=== PATIENT | male | born 1965 | race Caucasian/White ===

== ENCOUNTER 2016-03-10 07:02 | Emergency (ER) | payer BC, OTHER ==
[2016-03-10] MEDS ORDERED: IBUPROFEN 600 MG TABLET (FP) PO ONE (07:12)
[2016-03-10 07:14] VITALS: BP 135/84; PULSE 91; TEMP 97.4; BMI 51.7
--- NOTE | 2016-03-10 07:17 | PDOC ---
History of Present Illness - General Chief Complaint: Pain Stated Complaint: LEFT WRIST PAIN Time Seen by Provider: 03/10/16 07:10 History Source: Patient Exam Limitations: No Limitations - History of Present Illness Initial Comments: 03/10/16 07:15 50-year-old male with past medical history diabetes, obesity, left hand dominant presents to the emergency department for left medial wrist pain. The patient was playing with his 50 lb dog. Yesterday, noted throughout the day that he had developed gradual left medial wrist pain worse with palpation and movement. Denies other types of trauma. Denies numbness or weakness. Has not taken any medications. Came into the ER for further evaluation. Patient is wearing his own splint. Past History - Past Medical History Allergies/Adverse Reactions: Allergies Allergy/AdvReac Type Severity Reaction Status Date / Time No Known Allergies Allergy Verified 03/10/16 07:03 Home Medications: Ambulatory Orders Aspirin 81 mg PO DAILY 07/25/14 Cholecalciferol (Vitamin D3) [Vitamin D-3] 2,000 unit PO DAILY 10/18/14 Cyanocobalamin [Vitamin B12 -] 1,000 mcg PO DAILY 10/18/14 Duloxetine HCl [Cymbalta] 60 mg PO DAILY 03/10/16 Metformin HCl 03/10/16 Anemia: No Asthma: No Cancer: No Cardiac Disorders: No CVA: No COPD: No CHF: No Dementia: No Diabetes: Yes GI Disorders: No Disorders: No HTN: Yes Hypercholesterolemia: Yes Liver Disease: No Seizures: No Thyroid Disease: No - Surgical History Abdominal Surgery: Yes (LAPROSCOPIC GASTRIC BANDING-2009) Appendectomy: No Cardiac Surgery: No Cholecystectomy: No Lung Surgery: No Neurologic Surgery: No Orthopedic Surgery: No - Psycho/Social/Smoking Cessation Hx Smoking History: Current every day smoker Have you smoked in the past 12 months: Yes Number of Cigarettes Smoked Daily: 15 Hx Alcohol Use: Yes Drug/Substance Use Hx: No Substance Use Type: Alcohol Hx Substance Use Treatment: No Review of Systems - Review of Systems Able to Perform ROS?: Yes Comments:: 03/10/16 07:16 GENERAL/CONSTITUTIONAL: No fever, weakness. HEAD, EYES, EARS, NOSE AND THROAT: No change in vision. No ear pain or discharge. No sore throat. CARDIOVASCULAR: No chest pain or shortness of breath. RESPIRATORY: No cough, wheezing, or hemoptysis. GASTROINTESTINAL: No abdominal pain, nausea, vomiting, diarrhea, or decreased PO intolerance. GENITOURINARY: No dysuria, frequency, or change in urination. MUSCULOSKELETAL: +Left wrist pain. No neck or back pain. SKIN: No rash NEUROLOGIC: No headache, vertigo, loss of consciousness, or change in strength/ sensation. ENDOCRINE: No increased thirst. No abnormal weight change. HEMATOLOGIC/LYMPHATIC: No anemia, easy bleeding, or history of blood clots. ALLERGIC/IMMUNOLOGIC: No hives or skin allergy. *Physical Exam - Physical Exam Comments: 03/10/16 07:16 GENERAL: Awake, alert, and fully oriented, in no acute distress. HEAD: No signs of trauma EYES: PERRLA, EOMI, sclera anicteric, conjunctiva clear ENT: Auricles normal inspection, hearing grossly normal, nares patent, oropharynx clear without exudates. NECK: Normal ROM, supple, no lymphadenopathy, JVD, or masses LUNGS: Breath sounds equal, clear to auscultation bilaterally. No wheezes, and no crackles HEART: Regular rate and rhythm, normal S1 and S2, no murmurs, rubs or gallops ABDOMEN: Soft, nontender, normoactive bowel sounds. No guarding, no rebound. No masses EXTREMITIES: Normal range of motion, no edema. No clubbing or cyanosis. No cords, erythema, or tenderness LUE: 2+ radial pulse. Sensation and movement intact in the medial/radial/ulnar nerve distribution Full strength. Point tenderness along the left medial wrist. No stepoffs appreciated. NEUROLOGICAL: Cranial nerves II through XII grossly intact. Normal speech, normal gait SKIN: Warm, Dry, normal turgor, no rashes or lesions noted. ED Treatment Course - RADIOLOGY Radiology Studies Ordered: Category Date Time Status WRIST-LEFT [RAD] Stat Radiology 03/10/16 07:10 Ordered Medical Decision Making - Medical Decision Making 03/10/16 07:17 Likely wrist strain in setting of playing with his pet dog. Will obtain xray to r/o fractures. NSAIDs and reassess. 03/10/16 08:25 Xray reviewed, as per imaging communication center coordinator. Suspected calcific density associated with the radial margin intercarpal row, possibly ligamentous in origin. RICE therapy. Follow up with orthopedics. I discussed the physical exam findings, ancillary test results and final diagnoses with the patient. I answered all of the patient's questions. The patient was satisfied with the care received and felt comfortable with the discharge plan and treatment plan. The patient will call their primary care physician within 24 hours to arrange follow-up and will return to the Emergency Department with any new, persistant or worsening symptoms. *DC/Admit/Observation/Transfer Diagnosis at time of Disposition: Left wrist sprain Qualifiers: Encounter type: initial encounter Qualified Code(s): S63.502A - Unspecified sprain of left wrist, initial encounter - Discharge Dispostion Disposition: HOME Condition at time of disposition: Stable Admit: No - Referrals Referrals: Henry Bojorquez MD [Staff Physician] - - Patient Instructions Printed Discharge Instructions: DI for Wrist Strain Additional Instructions: Take 600 mg ibuprofen (motrin) every 6 hours as needed for pain. Elevate the hand as much as you can. Wear the brace as needed. If the symptoms are persistent and greater than 1 week, please make an appointment with an orthopedist.
== END 2016-03-10 08:32 | disposition home or self-care (01) ==
LOC: FER 07:02
DX: S63.502A Unspecified sprain of left wrist, initial encounter (principal); X58.XXXA Exposure to other specified factors, initial encounter; Y93.89 Activity, other specified; Y92.9 Unspecified place or not applicable; E11.9 Type 2 diabetes mellitus without complications; E66.9 Obesity, unspecified; Z68.43 Body mass index [BMI] 50.0-59.9, adult; I10 Essential (primary) hypertension; Z98.84 Bariatric surgery status; E78.00 Pure hypercholesterolemia, unspecified; F17.210 Nicotine dependence, cigarettes, uncomplicated
CPT/HCPCS: 73110-TC-LT; 99282-25

== ENCOUNTER 2018-08-14 19:20 | Emergency (ER) | payer BC ==
[2018-08-14 19:28] VITALS: BP 123/77; PULSE 90; TEMP 98.4; BMI 52.9
[2018-08-14] MEDS ORDERED: LIDO 2%/EPI 1:200000 PRESRVFRE (20 ML SDVIAL) ONE (20:38)
--- NOTE | 2018-08-15 02:06 | PDOC ---
Documentation entered by Daniele De Jesus SCRIBE, acting as scribe for Gely Germain MD. Gely Germain MD: This documentation has been prepared by the Neal mcfadden Daniel, SCRIBE, under my direction and personally reviewed by me in its entirety. I confirm that the documentation accurately reflects all work, treatment, procedures, and medical decision making performed by me. History of Present Illness - General Chief Complaint: Injury Stated Complaint: RT ANKLE WOUND Time Seen by Provider: 08/14/18 19:22 History Source: Patient Exam Limitations: No Limitations - History of Present Illness Initial Comments: 08/14/18 20:37 The patient is a 52 year old male with a past medical history of diabetes, diabetic neuropathy, and varicose veins here today for evaluation of a laceration to the right ankle. The patient reports that he was trimming his hedges when a stick cut his the anterior aspect of his right ankle. The patient noted copious, pulsatile bleeding from the area and reported to the ER. No previous history of bleeding from varicose veins Patient denies headache, lightheadedness. Denies fever, chills. Denies chest pain, shortness of breath. Denies nausea, vomiting, diarrhea, abdominal pain. Allergies: NKA Past History - Past Medical History Allergies/Adverse Reactions: Allergies Allergy/AdvReac Type Severity Reaction Status Date / Time No Known Allergies Allergy Verified 03/10/16 07:03 Home Medications: Ambulatory Orders Aspirin 81 mg PO DAILY 07/25/14 Cholecalciferol (Vitamin D3) [Vitamin D-3] 2,000 unit PO DAILY 10/18/14 Cyanocobalamin [Vitamin B12 -] 1,000 mcg PO DAILY 10/18/14 Anemia: No Asthma: No Cancer: No Cardiac Disorders: No CVA: No COPD: No CHF: No Dementia: No Diabetes: Yes GI Disorders: No Disorders: No HTN: Yes Hypercholesterolemia: Yes Liver Disease: No Psychiatric Problems: Yes Seizures: No Thyroid Disease: No Other medical history: PERIPHERAL NEUROPATHY, MORBIDLY OBESE - Surgical History Abdominal Surgery: Yes (LAPROSCOPIC GASTRIC BANDING-2009) Appendectomy: No Cardiac Surgery: No Cholecystectomy: No Lung Surgery: No Neurologic Surgery: No Orthopedic Surgery: No - Immunization History Immunization Up to Date: Yes - Suicide/Smoking/Psychosocial Hx Smoking History: Current every day smoker Have you smoked in the past 12 months: Yes Number of Cigarettes Smoked Daily: 20 Information on smoking cessation initiated: Yes 'Breaking Loose' booklet given: 03/10/16 Hx Alcohol Use: Yes Drug/Substance Use Hx: No Substance Use Type: Alcohol Hx Substance Use Treatment: No Review of Systems - Review of Systems Able to Perform ROS?: Yes Comments:: 08/14/18 20:38 All systems are reviewed and negative except as noted in the HPI *Physical Exam - Vital Signs Last Vital Signs Temp Pulse Resp BP Pulse Ox 98.4 F 90 18 123/77 96 08/14/18 19:22 08/14/18 19:22 08/14/18 19:22 08/14/18 19:22 08/14/18 19:22 - Physical Exam Comments: 08/14/18 21:05 GENERAL: Awake, alert, and fully oriented, in no acute distress HEAD: No signs of trauma EYES: PERRLA, EOMI, sclera anicteric, conjunctiva clear ENT: Auricles normal inspection, hearing grossly normal, nares patent, oropharynx clear without exudates. Moist mucosa NECK: Normal ROM, supple, no lymphadenopathy, JVD, or masses LUNGS: Breath sounds equal, clear to auscultation bilaterally. No wheezes, and no crackles HEART: Regular rate and rhythm, normal S1 and S2, no murmurs, rubs or gallops ABDOMEN: Soft, nontender, normoactive bowel sounds. No guarding, no rebound. No masses EXTREMITIES: Normal range of motion, no edema. No clubbing or cyanosis. No cords, erythema, or tenderness NEUROLOGICAL: Cranial nerves II through XII grossly intact. Normal speech, normal gait SKIN: +.5x1 cm skin tear with mild bleeding of small blood vessel to the anterior portion of distal right lower leg. Warm, Dry, normal turgor. Procedures - Laceration/Wound Repair Right Anterior Distal Leg Wound Length: to 2.5 cm Wound Explored: clean Wound's Depth, Shape: superficial Betadine Prep: No (Chlorhexidine/Ethanol) Anesthesia: 2% Lidocaine w/ Epi Amount of Anesthetic (ccs): 1 Suture Size/Type: 5:0 Number of Sutures: 2 Deep Layer Suture Size/Type: chromic Progress: Skin tear wound of the right anterior lower leg prepped using chlorhexidine/ ethanol solution. 0.5 mL of 2% lidocaine with epinephrine injected into the site. Wound cleansed with sterile normal saline. Hemostasis from mildly bleeding blood vessel achieved using 2 sutures of 5-0 rapidly dissolving chromic. Proximal skin tear flap gently retracted downward. Small (0.5 by 0.5 cm) area of exposed subcutaneous tissue still present. Wound covered with bacitracin ointment followed by Telfa pad and sterile gauze wrap. Patient tolerated procedure well Medical Decision Making - Medical Decision Making As noted above, patient presents with right anterior lower leg wound sustained while cutting his hedges: Branch of shrub scraped against leg and caused skin tear. Besides the skin tear, small venule was exposed and injured resulting in copious bleeding at home. When patient presented to the ER, compression dressing with Prasanna wrap applied. When he was evaluated, most of the bleeding had resolved. Care of the wound, including suturing of the small vessel was performed as noted above. Patient was discharged with instructions to keep the wound covered and as dry as possible for 2 days; after that, a protective daytime dressing should be used with wound check by his PMD within the next 3-4 days. He should return here or see his PMD if any sign of infection occurs. *DC/Admit/Observation/Transfer Diagnosis at time of Disposition: Bleeding from varicose veins of right lower extremity Noninfected skin tear of leg Qualifiers: Laterality: right - Discharge Dispostion Disposition: HOME Condition at time of disposition: Stable - Referrals - Patient Instructions Printed Discharge Instructions: DI for Abrasion Additional Instructions: Keep original dressing in place as dry as possible for 2 days After 2 days, can use gauze/bacitracin to wound during the day/open at night as tolerated Follow-up with your general doctor within the next 3-4 days for wound check Return to ER if you have worsening pain/recurrent bleeding/swelling or redness around the wound - Post Discharge Activity
== END 2018-08-14 21:19 | disposition home or self-care (01) ==
LOC: FER 19:20
PROC: 0HQKXZZ Repair Right Lower Leg Skin, External Approach (ICD-10-PCS; principal; 2018-08-14)
DX: S81.811A Laceration without foreign body, right lower leg, initial encounter (principal); R58 Hemorrhage, not elsewhere classified; I86.8 Varicose veins of other specified sites; X58.XXXA Exposure to other specified factors, initial encounter; Y93.89 Activity, other specified; Y92.89 Other specified places as the place of occurrence of the external cause; F17.210 Nicotine dependence, cigarettes, uncomplicated; E78.00 Pure hypercholesterolemia, unspecified; I10 Essential (primary) hypertension; E11.9 Type 2 diabetes mellitus without complications; E66.01 Morbid (severe) obesity due to excess calories
CPT/HCPCS: 99281-25

== ENCOUNTER 2019-10-04 23:53 | Emergency (ER) | payer BC ==
[2019-10-04 23:58] VITALS: BP 131/80; PULSE 90; TEMP 98.6; BMI 48.8
--- NOTE | 2019-10-05 00:39 | PDOC ---
History of Present Illness - General Chief Complaint: Laceration Stated Complaint: LACERATION Time Seen by Provider: 10/05/19 00:08 History Source: Patient Exam Limitations: No Limitations - History of Present Illness Initial Comments: 10/05/19 00:35 This is a 53-year-old male who comes in complaining of a laceration to the webspace between his left fourth and fifth finger webspace patient was washing dishes when a glass broke cutting the webspace. Patient denies any sensation of any glass in the webspace. Allergies: as per nursing notes Past Medical History: none Social history: Lives with family. No smoking. No alcohol. No illicit drugs. Surgical history: None General: No fevers or chills, no weakness, no weight loss HEENT: No change in vision. No sore throat,. No ear pain CardioVascular: no chest discomfort. No shortness of breath Respiratory:No cough, or wheezing. Gastrointestinal: no nausea, vomiting, diarrhea or constipation, No rectal bleeding Genitourinary: No dysuria, hematuria, or frequency Musculoskeletal: No joint or muscle pain or swelling Neurologic: No headache, vertigo, dizziness or loss of consciousness Psychiatric: nor depression Skin: No rashes or easy bruising Endocrine: no increased thirst or abnormal weight change Allergic: no skin or latex allergy All other systems reviewed and normal GENERAL: The patient is awake, alert, and fully oriented, in no acute distress. HEENT:Head is normal with no signs of trauma. Eyes: Pupils equal, round and reactive to light, Ears, and Throat are normal. Neck is supple. No Lymphadenop athy. EXTREMITIES: Approximately 2 cm laceration of the webspace of the fourth and fifth finger. Neurovascular distally intact. NEUROLOGICAL: Normal speech, normal gait. PSYCH: Normal mood, normal affect. SKIN: Warm, Dry, normal turgor, no rashes or lesions noted. Procedure note laceration repair Laceration was cleaned with normal saline and closed with a total of 4 sutures of 5-0 Ethilon simple interrupted. Bacitracin and sterile dressing was applied patient tolerated well Patient discharged home. Past History - Medical History Allergies/Adverse Reactions: Allergies Allergy/AdvReac Type Severity Reaction Status Date / Time No Known Allergies Allergy Verified 03/10/16 07:03 Home Medications: Ambulatory Orders Aspirin 81 mg PO DAILY 07/25/14 Cholecalciferol (Vitamin D3) [Vitamin D-3] 2,000 unit PO DAILY 10/18/14 Cyanocobalamin [Vitamin B12 -] 1,000 mcg PO DAILY 10/18/14 Anemia: No Asthma: No Cancer: No Cardiac Disorders: No CVA: No COPD: No CHF: No Dementia: No Diabetes: Yes GI Disorders: No Disorders: No HTN: Yes Hypercholesterolemia: Yes Liver Disease: No Psychiatric Problems: Yes Seizures: No Thyroid Disease: No - Surgical History Abdominal Surgery: Yes (LAPROSCOPIC GASTRIC BANDING-2009) Appendectomy: No Cardiac Surgery: No Cholecystectomy: No Lung Surgery: No Neurologic Surgery: No Orthopedic Surgery: No - Immunization History Immunization Up to Date: Yes - Psycho-Social/Smoking History Smoking History: Current every day smoker Have you smoked in the past 12 months: No Number of Cigarettes Smoked Daily: 10 Information on smoking cessation initiated: No 'Breaking Loose' booklet given: 03/10/16 - Substance Abuse Hx (Audit-C & DAST Scrn) How often the patient has a drink containing alcohol: Never Score: In Men: 4 or > Positive; In Women: 3 or > Positive: 0 Screen Result (Pos requires Nsg. Audit-10AR): Negative In the last yr the pt used illegal drug/Rx for NonMed reason: No Score: Yes response is considered Positive: 0 Screen Result (Positive result requires Nsg. DAST-10): Negative *Physical Exam - Vital Signs Last Vital Signs Temp Pulse Resp BP Pulse Ox 98.6 F 90 18 131/80 97 10/04/19 23:54 10/04/19 23:54 10/04/19 23:54 10/04/19 23:54 10/04/19 23:54 Discharge - Discharge Information Problems reviewed: Yes Clinical Impression/Diagnosis: Laceration of left hand Qualifiers: Encounter type: initial encounter Foreign body presence: without foreign body Qualified Code(s): S61.412A - Laceration without foreign body of left hand, initial encounter Condition: Good Disposition: HOME - Admission No - Follow up/Referral - Patient Discharge Instructions Patient Printed Discharge Instructions: DI for Laceration Repair Additional Instructions: Suture removal in 1 week you can come back here or see your primary care doctor for suture removal. Return to the emergency department immediately with ANY new, persistent or worsening symptoms. Continue any medications as previously prescribed by your physician. You should follow up with your primary doctor as soon as possible regarding today's emergency department visit. . Please make sure your doctor reviews the results of your emergency evaluation. Thank you for coming to the Emergency Department today for your care. It was a pleasure to see you today. Please note that your evaluation is INCOMPLETE until you follow-up with your doctor. - Post Discharge Activity
== END 2019-10-05 00:54 | disposition home or self-care (01) ==
LOC: FER 23:53
DX: S61.412A Laceration without foreign body of left hand, initial encounter (principal)
CPT/HCPCS: 99282-25

== ENCOUNTER 2022-05-12 10:22 | Day surgery (SDC) | payer BC ==
[2022-05-12 11:12] VITALS: TEMP 98; BMI 55.8
[2022-05-12 13:00] VITALS: RESP 16
[2022-05-12 13:01] VITALS: BP 105/63; PULSE 97
== END 2022-05-12 13:17 | disposition home or self-care (01) ==
LOC: FASU-ENDO 10:22
PROVIDERS: ATTEND Internal Medicine Gastroenterology
PROC: 0DJD8ZZ Inspection of Lower Intestinal Tract, Via Natural or Artificial Opening Endoscopic (ICD-10-PCS; principal; 2022-05-12 12:02)
DX: Z12.11 Encounter for screening for malignant neoplasm of colon (principal)
CPT/HCPCS: 82962